=== PATIENT | male | born 1990 | race Caucasian/White ===

== ENCOUNTER 2021-03-24 18:46 | Emergency (ER) | payer MEDICAID ==
[~2021-03-24] VITALS: Ht 180.3 cm; Wt 81.8 kg
[2021-03-24] MEDS ORDERED: BIMA12.5OS OD (18:54)
[2021-03-24] MEDS ORDERED: AMPH15CA6 PO (18:57)
[2021-03-24 19:12] VITALS: BP 119/74
[2021-03-24] MEDS ORDERED: PERTUSS(ACELL),DIPH,TET VAC/PF 0.5 ML SYRINGE IM. ONE (19:15)
== END 2021-03-24 20:03 | disposition home or self-care (01) ==
LOC: EMS 18:49
DX: S61.250A Open bite of right index finger without damage to nail, initial encounter (principal); W55.01XA Bitten by cat, initial encounter; Y93.89 Activity, other specified; Y92.89 Other specified places as the place of occurrence of the external cause; Y99.8 Other external cause status
CPT/HCPCS: 90471; 90715; 99283